=== PATIENT | female | born 1950 | race Caucasian/White ===

== ENCOUNTER 2023-08-17 15:45 | Emergency (ER) | payer MEDICARE, OTHER, SELFPAY ==
[2023-08-17 15:48] VITALS: BP 156/80
--- NOTE | 2023-08-17 16:15 | ED.SKININJ ---
HPI-Injury
General
Chief Complaint: Head Injury
Source: patient
Time Seen by Provider: 08/17/23 16:02
Travel History
Have you had any contact with someone who has COVID-19?: No
Do you have any symptoms of coronavirus? Fever > 100 degrees, chills, cough, shortness of breath, sore throat, loss of taste or smell, muscle aches, or headache?: No
History of Present Illness-Injury
Initial Injury comments:
72-year-old female presents for evaluation of head injury. She slipped on ice and fell backwards hitting the back of her head. She notes significant headache. She not anticoagulated. She denies neck pain. No other complaints at this time.
Phy Exam
Physical Exam
Physical Exam:
General: Well-appearing female no acute respiratory distress
HEENT: Normocephalic atraumatic pupils equal round reactive to light TMs normal
Heart: Regular rate and rhythm no murmurs
Lungs: Clear to auscultation bilaterally no wheezing
Neurologic exam: Alert and oriented normal gait finger-nose intact extraocular's are intact
Musculoskeletal exam: The spine is nontender to palpation
Course
Orders/Labs/Results
Orders:
Orders
08/17/23 16:10
CT Head W/o Iv Contrast Urgent
Comment:
Reason For Exam: fall
Vital Signs
Initial and Last Documented VS:
Initial Vital Signs
Temp Pulse Resp BP Pulse Ox
98.2 F 75 16 156/80 95
08/17/23 15:48 08/17/23 15:48 08/17/23 15:48 08/17/23 15:48 08/17/23 15:48
Last Documented Vital Signs
Temp Pulse Resp BP Pulse Ox
98.2 F 68 16 128/73 98
08/17/23 15:48 08/17/23 16:45 08/17/23 16:45 08/17/23 16:45 08/17/23 16:45
MDM/Problems Addressed
Differential Diagnosis Includes:
Slip and fall. Head injury. Evaluate for fracture or bleeding with CT scan.
*Critical Care Note
Total Time (30-74mins, 75-104mins- exclusive of procedures): Not Applicable
Update Note
Update Note:
CT of head negative for skull fracture or intracranial hemorrhage. Patient reassured. Suspect contusion. Recommended ibuprofen or Tylenol. Stable for discharge
ED Attending Note
-
Portions of this chart may have been created with voice recognition software.� Occasional wrong word or��sound alike� substitutions may have occurred due to the inherent limitations of voice recognition software.
Discharge Plan
Departure
Patient Disposition: Home (Routine Discharge)
Date of Disposition: 08/17/23
Time of Disposition: 17:52
Patient with high blood pressure during this ER visit?: No
Discharge Problem:
Contusion
Instructions: Contusion (DC)
Referrals:
Elkin Ross MD [Family Provider] -
Activity Restrictions/Additional Instructions:
Rest. Use ibuprofen or Tylenol for pain. Return for worsening symptoms otherwise follow-up with family doctor
Interventions
Interventions:
*Risk Screen - Suicide Last Done: 08/17/23 16:30
*General Assessment Last Done: 08/17/23 15:48
*Neglect/Abuse Screening Last Done: 08/17/23 16:30
ED- Fall Risk Assessment Last Done: 08/17/23 16:30
*ED COVID-19 Vaccine History Last Done: 08/17/23 15:48
ED- Neurological Assessment Last Done: 08/17/23 16:31
ED-Skin Assessment Last Done: 08/17/23 16:31
[2023-08-17 16:29] VITALS: BMI 23.8
[2023-08-17 16:45] VITALS: BP 128/73
== END 2023-08-17 18:12 | disposition home or self-care (01) ==
LOC: EMR 15:45
PROVIDERS: EMERGENCY PHYSICIAN Emergency Medicine; FAMILY PHYSICIAN Internal Medicine
DX: S00.03XA Contusion of scalp, initial encounter (principal); W00.0XXA Fall on same level due to ice and snow, initial encounter
CPT/HCPCS: 99284; 70450